=== PATIENT | male | born 1990 | race African-American/Black ===

== ENCOUNTER 2017-06-29 09:24 | Inpatient (IN) | payer OTHER, SELFPAY ==
[2017-06-29] MEDS ORDERED: Acetaminophen 325 MG TAB PO PRN (10:00)
[2017-06-29] MEDS ORDERED: Sodium Chloride 0.9% 1,000 ML IV SCH (10:00)
[2017-06-29] MEDS ORDERED: HYDROcodone/Acetaminophen 5/325 mg Tablet PO PRN ×2 (10:00)
[2017-06-29] MEDS ORDERED: Ondansetron HCl/PF 4 MG/2 ML Vial IVP PRN (10:00)
[2017-06-29] MEDS ORDERED: Ondansetron ODT 4 MG TAB SL PRN (10:00)
[2017-06-29] MEDS ORDERED: Acetaminophen 500 MG TAB ONE (10:09)
[2017-06-29 10:18] LABS: Hematocrit 45.3 % (42.0-52.0); Mean Platelet Volume 6.4 fL (7.4-10.4); Red Blood Cell (RBC) Count 4.81 mill/uL (4.70-6.10); White Blood Cell (WBC) Count 26.5 thou/uL (4.8-10.8)
[2017-06-29] MEDS ORDERED: Sodium Chloride 0.9% 100 ML ONE (10:28)
[2017-06-29] MEDS ORDERED: cefTRIAXone\\ROCEPHIN 1 GM VIAL ONE (10:28)
[2017-06-29 10:36] LABS: ALT (SGPT) 15 U/L (8-55); AST (SGOT) 20 U/L (5-34); Alkaline Phosphatase 87 U/L (40-150); Anion Gap 13 mmol/L (10-20); BUN (Urea Nitrogen) 10 mg/dL (8.9-20.6); Bilirubin, Total 1.3 mg/dL (0.2-1.2); Calc. Creatinine Clearance 0 mL/min (70-130); Calcium 9.4 mg/dL (7.8-10.44); Carbon Dioxide 25 mmol/L (22-29); Chloride 100 mmol/L (98-107); Estimated GFR-MDRD 84; Globulin 4.4 g/dL (2.4-3.5); Lipase 11 U/L (8-78); Protein, Total 8.2 g/dL (6.0-8.3)
[2017-06-29 10:37] LABS: Band 6 % (5-11); Metamyelocyte 1 % (0-0); Neutrophil 85 % (42-75)
[2017-06-29 10:38] LABS: Lactic Acid - Sepsis 1.2 mmol/L (0.5-2.2)
[2017-06-29] MEDS ORDERED: Azithromycin 500 MG VIAL ONE (11:29)
--- NOTE | 2017-06-29 11:57 | RAD ---
CHEST 1 VIEW: Date: 06/29/17 HISTORY: Left lower lung pain. COMPARISON: Chest 1 view dated 04/20/12. FINDINGS: New right middle lobe and right lower lobe pneumonia. No significant effusion. No pneumothorax. IMPRESSION: Right middle lobe and right lower lobe pneumonia. Follow-up after treatment recommended. POS: JELLY
[2017-06-29 12:23] VITALS: BMI 24.7
--- NOTE | 2017-06-29 12:44 | HP ---
CHIEF COMPLAINT: Fevers, cough, and left-sided chest pain. HISTORY OF PRESENT ILLNESS: This is a 27-year-old male, being admitted to the Internal Medicine team to inpatient admission status due to right-sided middle lobar pneumonia and bilateral minor pleural infiltrations. The patient states that he was found to have severe significant coughing as well as left-sided chest pain. The patient states that he had a fever of 102 at home. When he presented to the emergency room, he also had a similar temperature. The patient states that this has never happened to him before. Denies any diarrhea , constipation, chills, or shortness of breath. Admits to nausea, one-time episode of vomiting, chest pain as well as fevers and productive cough. Patient states that symptoms started approximately 3 days ago and have been slowly worsening in condition. Pain is approximately 7/10 every time he coughs. No other alleviating or aggravating factors noted. ALLERGIES: No known drug allergies. MEDICATIONS: No home medications. PAST SURGICAL HISTORY: None. FAMILY HISTORY: Positive for hypertension. SOCIAL HISTORY: Smoking. The patient does admit to also doing marijuana and social drinking. REVIEW OF SYSTEMS: Twelve-point review of systems performed. Pertinent positives in the HPI, otherwise negative. PHYSICAL EXAMINATION: VITAL SIGNS: Heart rate was 98, blood pressure was 128/88, temperature was 102 , and respiratory rate was 18. GENERAL: Patient appears to be having cough every time he takes a deep breath in and nasal cannula in place, lying in bed. HEENT: NCAT. Pupils equal, round, reactive to light and accommodation bilaterally. Oral cavity moist and pink. NECK: Supple, nontender thyroid. LUNG EXAM: Right middle lobe has coarse breath sounds. Otherwise, clear to auscultation bilaterally. Deep inspiration causes cough. CARDIOVASCULAR: Regular rate and rhythm. S1 and S2. No murmurs, rubs, or gallops appreciated. ABDOMEN: Positive bowel sounds, soft, nontender, nondistended. EXTREMITIES: A 2+ peripheral pulses bilaterally. No edema noted. NEUROLOGIC: Nonfocal, moving all extremities. LABORATORY DATA: Laboratory george, WBC at 26.5. BMP shows a potassium of 3.4, sodium of 135, otherwise negative. Chest x-ray reveals right middle lobe and right lower lobe pneumonia. ASSESSMENT AND PLAN: 1. Community-acquired pneumonia. 2. Left-sided pleuritic chest pain. At this point in time, we will start the patient on IV fluids hydration as well as Levaquin 750 mg q.24 hours. We will obtain labs in the morning. Blood cultures ordered and pending. Pain management. Case and plan discussed with the patient and family at length. They understand and agree with this plan. MTDD
[2017-06-29] MEDS: Sodium Chloride 0.9% 1,000 ML IV SCH ×2 (13:18→20:55)
[2017-06-29] MEDS: Benzonatate 100 MG CAP PO PRN (17:27)
[2017-06-29] MEDS ORDERED: FLU VACC QS2017-18 36 mo. & older 0.5 ML SYRINGE IM ONE (21:00)
[2017-06-30 05:51] LABS: Band 14 % (5-11); Hematocrit 38.5 % (42.0-52.0); Mean Platelet Volume 6.8 fL (7.4-10.4); Neutrophil 64 % (42-75); Red Blood Cell (RBC) Count 4.05 mill/uL (4.70-6.10); White Blood Cell (WBC) Count 21.5 thou/uL (4.8-10.8)
[2017-06-30 06:00] LABS: Anion Gap 11 mmol/L (10-20); BUN (Urea Nitrogen) 9 mg/dL (8.9-20.6); Calc. Creatinine Clearance 136 mL/min (70-130); Calcium 8.1 mg/dL (7.8-10.44); Carbon Dioxide 24 mmol/L (22-29); Chloride 107 mmol/L (98-107); Estimated GFR-MDRD Greater than 90
[2017-06-30] MEDS ORDERED: Loratadine 10 MG TAB PO PRN (07:24)
[2017-06-30] MEDS ORDERED: Ondansetron HCl/PF 4 MG/2 ML Vial IVP PRN (07:24)
[2017-06-30] MEDS ORDERED: Sodium Chloride 0.65% Nasal 44 ML BOT EA NARE PRN (07:24)
[2017-06-30] MEDS ORDERED: Diabetic Tussin 200 MG/10 ML UDCUP PO PRN (07:24)
[2017-06-30] MEDS ORDERED: HYDROcodone/Acetaminophen 5/325 mg Tablet PO PRN (07:24)
[2017-06-30] MEDS ORDERED: Zolpidem Tartrate 5 MG TAB PO PRN (07:24)
[2017-06-30] MEDS ORDERED: Loperamide HCl 2 MG CAP PO PRN (07:24)
[2017-06-30] MEDS ORDERED: Eucerin (Mineral Oil/Petrolatum,White) 30 gm Jar TOP PRN (07:24)
[2017-06-30] MEDS ORDERED: Senokot 8.6 MG TAB PO PRN (07:24)
[2017-06-30] MEDS ORDERED: Chloraseptic Spray 180 ml Bottle PO PRN (07:24)
[2017-06-30] MEDS ORDERED: Acetaminophen 325 MG TAB PO PRN (07:24)
[2017-06-30] MEDS ORDERED: Ondansetron ODT 4 MG TAB PO PRN (07:24)
[2017-06-30] MEDS ORDERED: Mag-Al 1200 mg/1200 mg/30 ML UDCUP PO PRN (07:24)
[2017-06-30] MEDS ORDERED: Milk Of Magnesia 30 ML UDCUP PO PRN (07:24)
[2017-06-30] MEDS ORDERED: Ketorolac Tromethamine 30 MG/ML VIAL IVP PRN (07:26)
[2017-06-30] MEDS: Sodium Chloride 0.9% 1,000 ML IV SCH ×5 (08:16→19:53)
[2017-06-30] MEDS: Famotidine 20 MG TAB PO SCH ×2 (08:17→19:48)
[2017-06-30] MEDS: Enoxaparin Sodium 40 MG/0.4 ML SYRINGE SC SCH (08:17)
[2017-06-30] MEDS: Benzonatate 100 MG CAP PO PRN (08:31)
[2017-06-30 09:27] LABS: LegU Control Bar Appear? YES (CONTROL BAR); LegionellaU Control Bkground? CLEAR/WHITE (CLR/WHITE); Strp pneumo Control Bar Appear YES (CONTROL BAR)
[2017-06-30 09:28] LABS: Strp pneuU Control Background? CLEAR/WHITE (CLR/WHITE)
--- NOTE | 2017-06-30 11:49 | PDOC.PN ---
- Subjective Encounter Start Date: 06/30/17 Encounter Start Time: 09:00 -: old records requested/rev pt reports left side pleuritic chest pain, has cough, no fever - Objective Resuscitation Status: Resuscitation Status FULL:Full Resuscitation MAR Reviewed: Yes Vital Signs & Weight: Vital Signs (12 hours) Temp Pulse Resp BP BP Pulse Ox 06/30/17 08:00 98 F 94 18 123/85 97 06/30/17 04:00 98 F 79 20 126/79 98 06/30/17 00:00 98.2 F 72 18 112/79 98 I&O: 06/29/17 06/30/17 07/01/17 06:59 06:59 06:59 Intake Total 1960 Balance 1959 Result Diagrams: 06/30/17 04:34 06/30/17 04:34 Radiology Reviewed by me: Yes (chest xray) Phys Exam - Physical Examination Constitutional: NAD HEENT: PERRLA, moist MMs, sclera anicteric Neck: no JVD, supple Respiratory: no wheezing, no rales, no rhonchi right lower lobe rales Cardiovascular: RRR, no significant murmur, no rub Gastrointestinal: soft, non-tender, no distention, positive bowel sounds Musculoskeletal: no edema, pulses present Neurological: non-focal, normal sensation, moves all 4 limbs Psychiatric: normal affect, A&O x 3 Skin: no rash, normal turgor Dx/Plan (1) Bacteremia due to Streptococcus pneumoniae Code(s): R78.81 - BACTEREMIA Status: Acute (2) Community acquired bacterial pneumonia Code(s): J15.9 - UNSPECIFIED BACTERIAL PNEUMONIA Status: Acute (3) Hypokalemia Code(s): E87.6 - HYPOKALEMIA Status: Acute (4) Hyponatremia Code(s): E87.1 - HYPO-OSMOLALITY AND HYPONATREMIA Status: Acute (5) Sepsis Code(s): A41.9 - SEPSIS, UNSPECIFIED ORGANISM Status: Acute - Plan cont current plan of care, continue antibiotics * continue IVF * continue levaquin * will repeat labs tomorrow * medication reviewed as below * symptomatic treatment. * urine legionella and streptococcal antigen, viral testing * add toradol for pain as needed. Review of Systems - Review of Systems Constitutional: negative: Fever, Chills, Sweats, Weakness, Malaise, Other Eyes: negative: Pain, Vision Change, Conjunctivae Inflammation, Eyelid Inflammation, Redness, Other ENT: negative: Ear Pain, Ear Discharge, Nose Pain, Nose Discharge, Nose Congestion, Mouth Pain, Mouth Swelling, Throat Pain, Throat Swelling, Other Respiratory: Cough, Pleuritic Pain. negative: Dry, Shortness of Breath, Hemoptysis, SOB with Excertion, Sputum, Wheezing Cardiovascular: negative: Chest Pain, Palpitations, Orthopnea, Paroxysmal Noc. Dyspnea, Edema, Light Headedness, Other Gastrointestinal: negative: Nausea, Vomiting, Abdominal Pain, Diarrhea, Constipation, Melena, Hematochezia, Other Genitourinary: negative: Dysuria, Frequency, Incontinence, Hematuria, Retention , Other Musculoskeletal: negative: Neck Pain, Shoulder Pain, Arm Pain, Back Pain, Hand Pain, Leg Pain, Foot Pain, Other - Medications/Allergies Allergies/Adverse Reactions: Allergies Allergy/AdvReac Type Severity Reaction Status Date / Time No Known Allergies Allergy Verified 06/29/17 13:12 Medications: Current Medications Acetaminophen (Tylenol) 650 mg PO Q4H PRN PRN Reason: Headache/Fever or Pain Hydrocodone Bitart/Acetaminophen ([place] 5/325) 1 tab PO Q4H PRN PRN Reason: Moderate Pain (4-6) Al Hydroxide/Mg Hydroxide (Maalox) 30 ml PO Q6H PRN PRN Reason: Heartburn or Indigestion Albuterol/Ipratropium (Duoneb) 3 ml NEB [id number] PRN PRN Reason: SOB &/or Wheezing Benzonatate (Tessalon) 100 mg PO Q8H PRN PRN Reason: Cough Last Admin: 06/30/17 08:31 Dose: 100 mg Enoxaparin Sodium (Lovenox) 40 mg SC 0900 [facility] Last Admin: 06/30/17 08:17 Dose: 40 mg Famotidine (Pepcid) 20 mg PO BID [facility] Last Admin: 06/30/17 08:17 Dose: 20 mg Guaifenesin (Robitussin Sf) 200 mg PO Q4H PRN PRN Reason: Cough Sodium Chloride (Normal Saline 0.9%) 1,000 mls @ 100 mls/hr IV .Q10H [facility] Last Admin: 06/30/17 08:16 Dose: 1,000 mls Levofloxacin 750 mg/ Device 150 mls @ 100 mls/hr IVPB Q24HR@1300 [facility] Last Admin: 06/29/17 13:18 Dose: 150 mls Sodium Chloride (Normal Saline 0.9%) 1,000 mls @ 100 mls/hr IV .Q10H [facility] Last Admin: 06/30/17 08:16 Dose: 1,000 mls Ketorolac Tromethamine (Toradol) 15 mg IVP Q6H PRN PRN Reason: Pain Stop: 07/05/17 07:27 Loperamide HCl (Imodium) 2 mg PO PRN PRN PRN Reason: Diarrhea/Loose Stools Loratadine (Claritin) 10 mg PO DAILYPRN PRN PRN Reason: Sinus Symptoms Magnesium Hydroxide (Milk Of Magnesium) 30 ml PO DAILYPRN PRN PRN Reason: Constipation Mineral Oil/White Petrolatum (Eucerin Cream) 0 gm TOP BIDPRN PRN PRN Reason: Dry Skin Ondansetron HCl (Zofran Odt) 4 mg PO Q6H PRN PRN Reason: Nausea/Vomiting Ondansetron HCl (Zofran) 4 mg IVP Q6H PRN PRN Reason: Nausea/Vomiting Phenol (Chloraseptic [place] 180 Ml Bot) 0 ml PO PRN PRN PRN Reason: Sore Throat Senna (Senokot) 2 tab PO HSPRN PRN PRN Reason: Constipation Sodium Chloride (Flush - Normal Saline) 10 ml IVF Q12HR [facility] Last Admin: 06/30/17 08:23 Dose: 10 ml Sodium Chloride (Flush - Normal Saline) 10 ml IVF PRN PRN PRN Reason: Saline Flush Sodium Chloride ([place] Nasal [place] 0.65%) 0 ml EA NARE QIDPRN PRN PRN Reason: Nasal Congestion Zolpidem Tartrate (Ambien) 5 mg PO HSPRN PRN PRN Reason: Insomnia
[2017-07-01] MEDS: Sodium Chloride 0.9% 1,000 ML IV SCH ×5 (00:36→11:58)
[2017-07-01] MEDS: Benzonatate 100 MG CAP PO PRN ×2 (04:45→16:20)
[2017-07-01 05:58] LABS: Band 4 % (5-11); Hematocrit 38.5 % (42.0-52.0); Mean Platelet Volume 6.7 fL (7.4-10.4); Neutrophil 59 % (42-75); Red Blood Cell (RBC) Count 4.05 mill/uL (4.70-6.10); White Blood Cell (WBC) Count 13.2 thou/uL (4.8-10.8)
[2017-07-01] MEDS: Famotidine 20 MG TAB PO SCH ×2 (08:14→19:53)
[2017-07-01] MEDS: Enoxaparin Sodium 40 MG/0.4 ML SYRINGE SC SCH (08:14)
--- NOTE | 2017-07-01 10:08 | PDOC.PN ---
- Subjective Encounter Start Date: 07/01/17 Encounter Start Time: 09:00 Patient seen and examined. No new complaints. No overnight events - Objective Resuscitation Status: Resuscitation Status FULL:Full Resuscitation MAR Reviewed: Yes Vital Signs & Weight: Vital Signs (12 hours) Temp Pulse Resp BP BP Pulse Ox 07/01/17 08:00 98.6 F 75 18 119/76 94 L 07/01/17 04:37 98.4 F 78 20 106/57 L 78 L 07/01/17 00:00 98.6 F 65 20 111/71 96 I&O: 06/30/17 07/01/17 07/02/17 06:59 06:59 06:59 Intake Total 1959 3100 Balance 1959 3100 Result Diagrams: 07/01/17 04:15 06/30/17 04:34 Phys Exam - Physical Examination Constitutional: NAD HEENT: PERRLA, moist MMs, sclera anicteric Neck: no JVD, supple Respiratory: no wheezing, no rales, no rhonchi Cardiovascular: RRR, no significant murmur, no rub Gastrointestinal: soft, non-tender, no distention, positive bowel sounds Musculoskeletal: no edema, pulses present Neurological: non-focal, normal sensation, moves all 4 limbs Lymphatic: no nodes Psychiatric: normal affect, A&O x 3 Skin: no rash, normal turgor Dx/Plan (1) Bacteremia due to Streptococcus pneumoniae Code(s): R78.81 - BACTEREMIA Status: Acute (2) Community acquired bacterial pneumonia Code(s): J15.9 - UNSPECIFIED BACTERIAL PNEUMONIA Status: Acute (3) Hypokalemia Code(s): E87.6 - HYPOKALEMIA Status: Acute (4) Hyponatremia Code(s): E87.1 - HYPO-OSMOLALITY AND HYPONATREMIA Status: Acute (5) Sepsis Code(s): A41.9 - SEPSIS, UNSPECIFIED ORGANISM Status: Acute Qualifiers: Sepsis type: Pneumococcus Qualified Code(s): A40.3 - Sepsis due to Streptococcus pneumoniae - Plan cont current plan of care, continue antibiotics * continue one more day IV antibiotics * tomorrow will do cbc and repeat blood culture * plan for discharge tomorrow after iv levaquin given * medication reviewed as below. * symptomatic treatment. Review of Systems - Review of Systems ENT: negative: Ear Pain, Ear Discharge, Nose Pain, Nose Discharge, Nose Congestion, Mouth Pain, Mouth Swelling, Throat Pain, Throat Swelling, Other Respiratory: negative: Cough, Dry, Shortness of Breath, Hemoptysis, SOB with Excertion, Pleuritic Pain, Sputum, Wheezing Cardiovascular: negative: Chest Pain, Palpitations, Orthopnea, Paroxysmal Noc. Dyspnea, Edema, Light Headedness, Other Gastrointestinal: negative: Nausea, Vomiting, Abdominal Pain, Diarrhea, Constipation, Melena, Hematochezia, Other Genitourinary: negative: Dysuria, Frequency, Incontinence, Hematuria, Retention , Other Musculoskeletal: negative: Neck Pain, Shoulder Pain, Arm Pain, Back Pain, Hand Pain, Leg Pain, Foot Pain, Other - Medications/Allergies Allergies/Adverse Reactions: Allergies Allergy/AdvReac Type Severity Reaction Status Date / Time No Known Allergies Allergy Verified 06/29/17 13:12 Medications: Current Medications Acetaminophen (Tylenol) 650 mg PO Q4H PRN PRN Reason: Headache/Fever or Pain Hydrocodone Bitart/Acetaminophen ([place] 5/325) 1 tab PO Q4H PRN PRN Reason: Moderate Pain (4-6) Last Admin: 06/30/17 19:49 Dose: 1 tab Al Hydroxide/Mg Hydroxide (Maalox) 30 ml PO Q6H PRN PRN Reason: Heartburn or Indigestion Albuterol/Ipratropium (Duoneb) 3 ml NEB [id number] PRN PRN Reason: SOB &/or Wheezing Benzonatate (Tessalon) 100 mg PO Q8H PRN PRN Reason: Cough Last Admin: 07/01/17 04:45 Dose: 100 mg Enoxaparin Sodium (Lovenox) 40 mg SC 0900 [facility] Last Admin: 07/01/17 08:14 Dose: 40 mg Famotidine (Pepcid) 20 mg PO BID [facility] Last Admin: 07/01/17 08:14 Dose: 20 mg Guaifenesin (Robitussin Sf) 200 mg PO Q4H PRN PRN Reason: Cough Last Admin: 07/01/17 08:16 Dose: 200 mg Sodium Chloride (Normal Saline 0.9%) 1,000 mls @ 100 mls/hr IV .Q10H [facility] Last Admin: 07/01/17 04:45 Dose: 1,000 mls Levofloxacin 750 mg/ Device 150 mls @ 100 mls/hr IVPB Q24HR@1300 [facility] Last Admin: 06/30/17 14:05 Dose: 150 mls Sodium Chloride (Normal Saline 0.9%) 1,000 mls @ 100 mls/hr IV .Q10H [facility] Last Admin: 07/01/17 03:02 Dose: Not Given Ketorolac Tromethamine (Toradol) 15 mg IVP Q6H PRN PRN Reason: Pain Stop: 07/05/17 07:27 Last Admin: 07/01/17 08:13 Dose: 15 mg Loperamide HCl (Imodium) 2 mg PO PRN PRN PRN Reason: Diarrhea/Loose Stools Loratadine (Claritin) 10 mg PO DAILYPRN PRN PRN Reason: Sinus Symptoms Magnesium Hydroxide (Milk Of Magnesium) 30 ml PO DAILYPRN PRN PRN Reason: Constipation Mineral Oil/White Petrolatum (Eucerin Cream) 0 gm TOP BIDPRN PRN PRN Reason: Dry Skin Ondansetron HCl (Zofran Odt) 4 mg PO Q6H PRN PRN Reason: Nausea/Vomiting Ondansetron HCl (Zofran) 4 mg IVP Q6H PRN PRN Reason: Nausea/Vomiting Phenol (Chloraseptic [place] 180 Ml Bot) 0 ml PO PRN PRN PRN Reason: Sore Throat Senna (Senokot) 2 tab PO HSPRN PRN PRN Reason: Constipation Sodium Chloride (Flush - Normal Saline) 10 ml IVF Q12HR [facility] Last Admin: 07/01/17 08:14 Dose: 10 ml Sodium Chloride (Flush - Normal Saline) 10 ml IVF PRN PRN PRN Reason: Saline Flush Sodium Chloride ([place] Nasal [place] 0.65%) 0 ml EA NARE QIDPRN PRN PRN Reason: Nasal Congestion Zolpidem Tartrate (Ambien) 5 mg PO HSPRN PRN PRN Reason: Insomnia
[2017-07-02] MEDS: Benzonatate 100 MG CAP PO PRN (04:04)
[2017-07-02 04:49] LABS: Band 5 % (5-11); Mean Platelet Volume 6.7 fL (7.4-10.4); Neutrophil 71 % (42-75); Red Blood Cell (RBC) Count 4.14 mill/uL (4.70-6.10); White Blood Cell (WBC) Count 13.5 thou/uL (4.8-10.8)
[2017-07-02 07:18] VITALS: BP 131/74; TEMP 99
[2017-07-02] MEDS: Enoxaparin Sodium 40 MG/0.4 ML SYRINGE SC SCH (08:55)
[2017-07-02] MEDS: Famotidine 20 MG TAB PO SCH (08:55)
--- NOTE | 2017-07-02 10:16 | PDOC.PN ---
- Subjective Encounter Start Date: 07/02/17 Encounter Start Time: 07:35 Patient seen and examined. No new complaints. No overnight events - Objective Resuscitation Status: Resuscitation Status FULL:Full Resuscitation MAR Reviewed: Yes Vital Signs & Weight: Vital Signs (12 hours) Temp Pulse Resp BP Pulse Ox 07/02/17 07:16 99.0 F 74 16 131/74 96 07/02/17 04:54 98.7 F 81 20 131/78 96 07/02/17 00:00 99.6 F 72 20 94 L I&O: 07/01/17 07/02/17 07/03/17 06:59 06:59 06:59 Intake Total 3100 2200 Balance 3100 2200 Result Diagrams: 07/02/17 03:59 06/30/17 04:34 Phys Exam - Physical Examination Constitutional: NAD HEENT: PERRLA, moist MMs, sclera anicteric Neck: no JVD, supple Respiratory: no wheezing, no rales, no rhonchi Cardiovascular: RRR, no significant murmur, no rub Gastrointestinal: soft, non-tender, no distention, positive bowel sounds Musculoskeletal: no edema, pulses present Neurological: non-focal, normal sensation Psychiatric: normal affect, A&O x 3 Skin: no rash, normal turgor Dx/Plan (1) Bacteremia due to Streptococcus pneumoniae Code(s): R78.81 - BACTEREMIA Status: Acute (2) Community acquired bacterial pneumonia Code(s): J15.9 - UNSPECIFIED BACTERIAL PNEUMONIA Status: Acute (3) Hypokalemia Code(s): E87.6 - HYPOKALEMIA Status: Acute (4) Hyponatremia Code(s): E87.1 - HYPO-OSMOLALITY AND HYPONATREMIA Status: Acute (5) Sepsis Code(s): A41.9 - SEPSIS, UNSPECIFIED ORGANISM Status: Acute Qualifiers: Sepsis type: Pneumococcus Qualified Code(s): A40.3 - Sepsis due to Streptococcus pneumoniae - Plan cont current plan of care, continue antibiotics * medication reviewed as below * symptomatic treatment * see discharge pee. Review of Systems - Review of Systems ENT: negative: Ear Pain, Ear Discharge, Nose Pain, Nose Discharge, Nose Congestion, Mouth Pain, Mouth Swelling, Throat Pain, Throat Swelling, Other Respiratory: negative: Cough, Dry, Shortness of Breath, Hemoptysis, SOB with Excertion, Pleuritic Pain, Sputum, Wheezing Cardiovascular: negative: Chest Pain, Palpitations, Orthopnea, Paroxysmal Noc. Dyspnea, Edema, Light Headedness, Other Gastrointestinal: negative: Nausea, Vomiting, Abdominal Pain, Diarrhea, Constipation, Melena, Hematochezia, Other Genitourinary: negative: Dysuria, Frequency, Incontinence, Hematuria, Retention , Other Musculoskeletal: negative: Neck Pain, Shoulder Pain, Arm Pain, Back Pain, Hand Pain, Leg Pain, Foot Pain, Other - Medications/Allergies Allergies/Adverse Reactions: Allergies Allergy/AdvReac Type Severity Reaction Status Date / Time No Known Allergies Allergy Verified 06/29/17 13:12 Medications: Current Medications Acetaminophen (Tylenol) 650 mg PO Q4H PRN PRN Reason: Headache/Fever or Pain Hydrocodone Bitart/Acetaminophen ([place] 5/325) 1 tab PO Q4H PRN PRN Reason: Moderate Pain (4-6) Last Admin: 06/30/17 19:49 Dose: 1 tab Al Hydroxide/Mg Hydroxide (Maalox) 30 ml PO Q6H PRN PRN Reason: Heartburn or Indigestion Albuterol/Ipratropium (Duoneb) 3 ml NEB [id number] PRN PRN Reason: SOB &/or Wheezing Benzonatate (Tessalon) 100 mg PO Q8H PRN PRN Reason: Cough Last Admin: 07/02/17 04:04 Dose: 100 mg Enoxaparin Sodium (Lovenox) 40 mg SC 0900 [facility] Last Admin: 07/02/17 08:55 Dose: 40 mg Famotidine (Pepcid) 20 mg PO BID [facility] Last Admin: 07/02/17 08:55 Dose: 20 mg Guaifenesin (Robitussin Sf) 200 mg PO Q4H PRN PRN Reason: Cough Last Admin: 07/01/17 08:16 Dose: 200 mg Sodium Chloride (Normal Saline 0.9%) 1,000 mls @ 100 mls/hr IV .Q10H [facility] Last Admin: 07/01/17 11:57 Dose: 1,000 mls Levofloxacin 750 mg/ Device 150 mls @ 100 mls/hr IVPB Q24HR@1300 [facility] Last Admin: 07/01/17 11:54 Dose: 150 mls Sodium Chloride (Normal Saline 0.9%) 1,000 mls @ 100 mls/hr IV .Q10H [facility] Last Admin: 07/01/17 11:58 Dose: 1,000 mls Ketorolac Tromethamine (Toradol) 15 mg IVP Q6H PRN PRN Reason: Pain Stop: 07/05/17 07:27 Last Admin: 07/01/17 08:13 Dose: 15 mg Loperamide HCl (Imodium) 2 mg PO PRN PRN PRN Reason: Diarrhea/Loose Stools Loratadine (Claritin) 10 mg PO DAILYPRN PRN PRN Reason: Sinus Symptoms Magnesium Hydroxide (Milk Of Magnesium) 30 ml PO DAILYPRN PRN PRN Reason: Constipation Mineral Oil/White Petrolatum (Eucerin Cream) 0 gm TOP BIDPRN PRN PRN Reason: Dry Skin Ondansetron HCl (Zofran Odt) 4 mg PO Q6H PRN PRN Reason: Nausea/Vomiting Ondansetron HCl (Zofran) 4 mg IVP Q6H PRN PRN Reason: Nausea/Vomiting Phenol (Chloraseptic [place] 180 Ml Bot) 0 ml PO PRN PRN PRN Reason: Sore Throat Senna (Senokot) 2 tab PO HSPRN PRN PRN Reason: Constipation Sodium Chloride (Flush - Normal Saline) 10 ml IVF Q12HR [facility] Last Admin: 07/02/17 08:55 Dose: Not Given Sodium Chloride (Flush - Normal Saline) 10 ml IVF PRN PRN PRN Reason: Saline Flush Sodium Chloride ([place] Nasal [place] 0.65%) 0 ml EA NARE QIDPRN PRN PRN Reason: Nasal Congestion Zolpidem Tartrate (Ambien) 5 mg PO HSPRN PRN PRN Reason: Insomnia
--- NOTE | 2017-07-02 11:19 | DIS ---
DATE OF ADMISSION: 06/29/2017 DATE OF DISCHARGE: 07/02/2017 PRIMARY CARE PHYSICIAN: [facility] call admission. DISCHARGE DISPOSITION: Home. PRIMARY DISCHARGE DIAGNOSES: 1. Streptococcal pneumonia. 2. Bacteremia due to Streptococcal pneumonia. 3. Sepsis. 4. Hypokalemia. 5. Hyponatremia. SECONDARY DISCHARGE DIAGNOSIS: None. PRIMARY PROCEDURE/OPERATION: None. RADIOLOGICAL INVESTIGATION: Chest x-ray on admission showed right middle lobe and lower lobe infiltration. SIGNIFICANT LABS: WBC 13.5, hemoglobin 12.3, platelets 357,000. Sodium 138, creatinine 0.84. LFTs normal. Urine legionella and Streptococcal pneumonia antigen negative. Blood culture positive for Streptococcus pneumonia. Respiratory virus panel negative. DISCHARGE MEDICATIONS: Levofloxacin 750 mg p.o. daily for 10 more days, ibuprofen and Tylenol p.r.n. basis as advised. tessalon prn CONTRAINDICATIONS: None. CODE STATUS: FULL CODE. INPATIENT CONSULTANTS: None. ALLERGIES: No known drug allergy. DISCHARGE PLAN: Post hospital, the patient will follow up with primary care physician in 1 week. The patient is advised to get repeat chest x-ray upon followup visit with primary care physician. HOSPITAL COURSE: A 27-year-old male with the above mentioned medical problem, who was admitted by Dr. Rodolfo Abbott on 06/29/2017. He was having pleuritic chest pain, cough, shortness of breath and fever. He was diagnosed with right lower lobe and middle lobe pneumonia. His blood culture was positive for Streptococcus pneumonia. His respiratory virus panel was negative. His urine legionella and streptococcal pneumonia antigen was negative. Patient was treated with IV fluid and levofloxacin while in hospital. On discharge, we changed to p.o. levofloxacin therapy for another 10 days. The patient does have significant clinical improvement. He will follow up with primary care physician and he will have repeat chest x-ray upon followup visit. Patient is seen and examined at bedside today. Please see my progress note from today for further details. PEPPER
== END 2017-07-02 14:02 | disposition home or self-care (01) | DRG 871 ==
LOC: ERS 09:24 → T4-A 11:57
PROVIDERS: ADMIT Internal Medicine; ATTEND Internal Medicine
DX: A40.3 Sepsis due to Streptococcus pneumoniae (principal); J13 Pneumonia due to Streptococcus pneumoniae; E87.1 Hypo-osmolality and hyponatremia; F17.210 Nicotine dependence, cigarettes, uncomplicated; E87.6 Hypokalemia
CPT/HCPCS: 36415; 71010; 80048; 80053; 83605; 83690; 85007; 85025; 85027; 87040; 87077; 87149; 87186; 87633; 87899; 96365; 96367; 96375; A4216; J0456; J0696; J1650; J1885; J1956; J2270; J7050